=== PATIENT | male | born 1960 | race Caucasian/White ===

== ENCOUNTER 2020-06-19 07:21 | Emergency (ER) | payer OTHER, SELFPAY ==
--- NOTE | ~2020-06-19 | XR_ITS ---
EXAMINATION: XR abdomen/kub 1V INDICATION: Right ureteral lithiasis TECHNIQUE: Supine views of the abdomen were obtained on 2 radiographs. COMPARISON: CT from today FINDINGS: A 4 mm right pelvic calcification projects in the expected location right distal ureter. Th ere are multiple phleboliths of the left pelvis. The bowel gas pattern is normal. The visualized lung bases are clear. IMPRESSION: 1. Faint 4 mm calcification in the right pelvis at the expected location of the right distal ureter. Reviewed, dictated and finalized at location A. RACT PROGRAMMER
--- NOTE | ~2020-06-19 | CT_ITS ---
EXAMINATION: CT abdomen pelvis wo con DATE: 06/19/2020 07:55 INDICATION: Right flank pain TECHNIQUE: Computed tomography (CT) of the abdomen and pelvis was performed without intravenous contr ast. The dose-length product (DLP) was 1108.48 mGy-cm. Automated exposure control and iterative recon struction technique were employed. COMPARISON: None FINDINGS: Minimal dependent atelectasis is present in the lung bases. The heart size is normal. The l iver, spleen, pancreas, gallbladder, and adrenal glands are normal. The left kidney is unremarkable. There is a 3 mm stone of the right distal ureter which causes moderate right hydroureteronephrosis. T he right kidney is otherwise unremarkable. No pathologically enlarged abdominal or pelvic lymph nodes are identified. There is no free intraperitoneal gas or evidence of bowel obstruction. The appendix is normal. There is mild lumbar spondylosis. IMPRESSION: 1. 3 mm stone of the right distal ureter causing moderate right hydroureteronephrosis. Consider KUB f or treatment planning purposes. Reviewed, dictated and finalized at location A. FF COUNSEL IMPRESSION: 1. 3 mm stone of the right distal ureter causing moderate right hydroureteronep hrosis. Consider KUB for treatment planning purposes.
[2020-06-19 07:25] VITALS: BP 155/92; PULSE 75; RESP 19; TEMP 36.3; O2SAT 96
[2020-06-19 07:42] LABS: Basophils Percent Auto 0.4 % (0.2-1.2); Eosinophils Absolute Auto 0.1 K/mm3 (0-0.3); Eosinophils Percent Auto 1.1 % (0-4.4); Hematocrit 45.5 % (42.0-52.0); Hemoglobin 15.4 g/dL (14.0-18.0); Immature Granulocyte Absolute 0.01 K/mm3 (0.00-0.031); Immature Granulocyte Percent A 0.1 % (0-0.5); Lymphocytes Absolute Auto 2.88 K/mm3 (0.9-3.2); Lymphocytes Percent Auto 36.1 % (18.3-44.2); Mean Corpuscular HGB Conc 33.8 g/dl (32-36); Mean Corpuscular Hemoglobin 29.5 pg (26-34); Mean Corpuscular Volume 87.2 fl (80-100); Monocytes Absolute Auto 0.5 K/mm3 (0.1-0.6); Neutrophils Absolute Auto 4.5 K/mm3 (1.3-6.7); Neutrophils Percent Auto 56.3 % (45.5-73.1); Platelet Count Result 214 k/mm3 (150-375); Red Blood Count 5.22 M/mm3 (4.6-6.20); Red Cell Distribution Width 12.4 % (11.5-14.5)
--- NOTE | 2020-06-19 07:48 | ED.ABDPAIN ---
HPI - Abdominal Pain General Chief Complaint: Abdominal Pain Stated Complaint: abd pain Time Seen by Provider: 06/19/20 07:23 History of Present Illness HPI narrative: Patient is a 60-year-old male who presents ER with sudden onset right-sided flank and abdominal pain. Reports he was inspecting some supplies when the pain began. Began the back is now wrapping around to the abdomen. Associate with sweats as well as nausea and vomiting. Has not had similar pain before. No urinary symptoms. He is without diarrhea or constipation. No direct trauma. Related Data Allergies Allergy/AdvReac Type Severity Reaction Status Date / Time No Known Allergies Allergy Verified 06/19/20 07:30 Review of Systems Review of Systems: All systems reviewed & are unremarkable except as noted in HPI and below Constitutional: Constitutional: Denies chills and Denies fever(s) Comments: Sweats Cardiovascular: Cardiovascular: Denies chest pain and Denies radiating jaw, neck or arm pain Respiratory: Respiratory: Denies cough, Denies dyspnea and Denies wheezing Gastrointestinal: Gastrointestinal: Reports abdominal pain, Denies constipation, Denies diarrhea, Reports nausea and Reports vomiting Genitourinary: Genitourinary: Denies hematuria and Denies dysuria Comments: Flank pain PMFSH Past Medical History Medical History (Updated 06/19/20 @ 10:40 by Miguel Millan MD) Healthy adult male Surgical History Surgical History (Updated 06/19/20 @ 07:50 by Miguel Millan MD) No history of previous surgery Social History Social History (Updated 06/19/20 @ 07:50 by Miguel Millan MD) Smoking status: Current every day smoker Gender identity (if verbalized by the patient): Male Exam Narrative: Exam Narrative: GENERAL: W uncomfortable-appearing, well-nourished, and in no acute distress. HEAD: Normocephalic, atraumatic. CHEST: Clear to auscultation. No respiratory distress. HEART: Regular rate and rhythm. Normal peripheral pulses. ABDOMEN: Soft, nontender, nondistended. No CVA tenderness EXTREMITIES: Normal range of motion. No edema. SKIN: Warm, dry, no rash. NEURO: Alert and oriented x3. PSYCH: Normal mood and affect. Course Vital Signs Vital signs: Vital Signs Temperature 97.4 F L 06/19/20 07:25 Pulse Rate 75 06/19/20 07:25 Respiratory Rate 19 06/19/20 07:25 Blood Pressure 155/92 H 06/19/20 07:25 Pulse Oximetry 96 06/19/20 07:25 Temperature 97.4 F L 06/19/20 07:25 Pulse Rate 64 06/19/20 10:10 Respiratory Rate 14 06/19/20 10:10 Blood Pressure 150/94 H 06/19/20 10:10 Pulse Oximetry 95 06/19/20 10:10 MDM - Abdominal Pain Lab Data Result diagrams: 06/19/20 07:35 06/19/20 07:35 Labs: Lab Results 06/19/20 06/19/20 06/19/20 Range/Units 07:35 07:35 08:06 WBC 8.0 (4.5-10.0) K/mm3 RBC 5.22 (4.6-6.20) M/mm3 Hgb 15.4 (14.0-18.0) g/dL Hct 45.5 (42.0-52.0) % MCV 87.2 (80-100) fl MCH 29.5 (26-34) pg MCHC 33.8 (32-36) g/dl RDW 12.4 (11.5-14.5) % Plt Count 214 (150-375) k/mm3 MPV 10.0 (7.4-10.4) fl Immature Gran % (Auto) 0.1 (0-0.5) % Neut % (Auto) 56.3 (45.5-73.1) % Lymph % (Auto) 36.1 (18.3-44.2) % [place] % (Auto) 6.0 (2.6-8.5) % Eos % (Auto) 1.1 (0-4.4) % Baso % (Auto) 0.4 (0.2-1.2) % Lymph # (Auto) 2.88 (0.9-3.2) K/mm3 [place] # (Auto) 0.5 (0.1-0.6) K/mm3 Eos # (Auto) 0.1 (0-0.3) K/mm3 Baso # (Auto) 0.0 (0.0-0.1) K/mm3 Abs Immat Gran (auto) 0.01 (0.00-0.031) K/mm3 Absolute Neuts (auto) 4.5 (1.3-6.7) K/mm3 Absolute Nucleated RBC 0.0 (0.0-0.012) K/mm3 Nucleated RBC % 0.0 (0.0-0.2) % Sodium 139 (137-145) mmol/L Potassium 4.1 (3.4-5.0) mmol/L Chloride 102 (98-107) mmol/L Carbon Dioxide 29 (22-30) mmol/L Anion Gap 8 (8-16) mmol/L BUN 15 (9-20) mg/dL Creatinine 1.00 (0.7-1.3) mg/dL Estim Creat Clear Ca
[2020-06-19 07:54] LABS: Anion Gap 8 mmol/L (8-16); Blood Urea Nitrogen 15 mg/dL (9-20); Calcium 9.3 mg/dL (8.4-10.2); Carbon Dioxide 29 mmol/L (22-30); Chloride 102 mmol/L (98-107); Estimated CRCL calculation 80 ml/min; Estimated Glomerular Filt Rate > 60; Glucose 141 mg/dL (75-110); Potassium 4.1 mmol/L (3.4-5.0); Sodium 139 mmol/L (137-145)
[2020-06-19] MEDS: MORPHINE SULFATE (*CRX) 4 MG/ML INJ IV PUSH (08:05)
[2020-06-19] MEDS: ONDANSETRON INJ 4 MG/2 ML VIAL IV PUSH (08:05)
[2020-06-19] MEDS: SODIUM CHLORIDE 0.9% IV 1,000 ML 999 ML IV CONT (08:06)
[2020-06-19 08:30] LABS: Add Urine Microscopic? YES; Amorphous Sediment Urine Few; Appearance Urine Clear (Clear); Bacteria Urine Trace /hpf; Bilirubin Urine Negative (Negative); Blood Urine 1+ (Negative); Color Urine Yellow (Yellow); Glucose Urine UA Negative (Negative); Ketones Urine Negative (Negative); Leukocyte Esterase Ur Negative LEU/UL (Negative); Mucus Urine Few /lpf; Nitrate Urine Negative (Negative); Protein Urine Negative (Negative); Specific Grav Ur 1.019 (1.001-1.035); Squamous Epithelial Cell Urine Rare /hpf (Few); Urobilinogen Urine Negative mg/dL (<2.0); WBC Urine 0-3 /hpf
[2020-06-19 08:52] VITALS: BP 147/81; PULSE 79; RESP 18; O2SAT 97
[2020-06-19 09:34] VITALS: BP 140/88; PULSE 81; RESP 15; O2SAT 99
[2020-06-19 10:10] VITALS: BP 150/94; PULSE 64; RESP 14; O2SAT 95
[2020-06-19 10:50] VITALS: BP 152/80; PULSE 81; RESP 18; O2SAT 96
== END 2020-06-19 10:51 | disposition home or self-care (01) ==
PROVIDERS: Emergency Provider Emergency Medicine
DX: N20.1 Calculus of ureter (principal)
CPT/HCPCS: 36415; 74018; 74176; 80048; 81001; 85025; 96361; 96374; 96375; 99284; J2270; J2405; J7030